=== PATIENT | female | born 1955 | race Caucasian/White ===

== ENCOUNTER → 2019-07-11 | Outpatient (CLI) | payer BC, OTHER | LOC: SPEECH 10:00 → RAD 10:00 | DX: R13.12 Dysphagia, oropharyngeal phase (principal); R05 Cough ==

== ENCOUNTER → 2020-08-22 | Outpatient (CLI) | payer MEDICARE | LOC: NUC 09:46 | PROVIDERS: ATTEND Family Medicine | DX: M85.88 Other specified disorders of bone density and structure, other site (principal); Z78.0 Asymptomatic menopausal state ==